=== PATIENT | female | born 1960 | race African-American/Black ===

== ENCOUNTER 2022-03-06 11:01 | Emergency (ER) | payer OTHER ==
[~2022-03-06] VITALS: Ht 165.1 cm; Wt 82.6 kg
[2022-03-06 13:13] LABS: ANION GAP 13.8 mmol/L (8-16); CALCIUM 9.4 mg/dL (8.4-10.2); CREATININE, SERUM 0.85 mg/dL (0.57-1.11); POTASSIUM 3.8 mmol/L (3.5-5.1)
[2022-03-06] MEDS ORDERED: MEDROL4 M2 PO (15:13)
[2022-03-06] MEDS ORDERED: ANAPROX DS550 MG PO (15:13)
== END 2022-03-06 15:26 | disposition home or self-care (01) ==
LOC: ER 11:21
DX: M25.511 Pain in right shoulder (principal); M77.8 Other enthesopathies, not elsewhere classified; M54.31 Sciatica, right side; I10 Essential (primary) hypertension
CPT/HCPCS: 36415; 72050; 72110; 80048; 99283